=== PATIENT | female | born 1945 | race Caucasian/White ===

== ENCOUNTER 2017-01-24 17:04 | Emergency (ER) | payer MEDICARE ==
[~2017-01-24] VITALS: Ht 160 cm; Wt 66.8 kg
[~2017-01-24 17:04] MED LIST: ACYC200C PO; ALBUINHPP INH; AMLO-39 PO; ASCO250T6 PO; ATENOLOL (*) 2525 MG PO; BEN25 PO; CALC1CAP26 PO; CHOL400T41 PO; COU5 PO; DM H PO; FLONASE; HCTZ25 PO; HYDR25CA PO; LACT1CAP67 PO; LORA-302 PO; METH5TAB5 PO; MULT-885 PO; OMEP20TA86 PO; OXYC5CAP4 PO; SENN15TA35 PO; SERT25TA6 PO; WARF2.5T82 PO; WARF5TAB7 PO
[2017-01-24 17:10] VITALS: BP 129/76; PULSE 85; RESP 20; O2SAT 96
--- NOTE | 2017-01-24 17:39 | ED.REPORT ---
HPI-Chest Pain 40 and Over Date of Service Jan 24, 2017 ED Provider: Armando Cartagena MD Pt is a 71 year old female with a history of SVT, thrombophilia, HTN, and COPD who presents to the ED s/p noted to be in an irregular rhythm while at her thyroid doctors office. Her EKG was sent to a information services consultant who referred her to the ED. Pt c/o associated burning in her chest, headache, diaphoresis, lightheadedness, and a rapid heart rate of 167. Her symptoms have since resolved. Pt denies chest pain, syncope, SOB, or any other symptoms. She has had similar symptoms previously. Pt admits to smoking but reports she has cut back. Nursing Notes Stated Complaint: SVT Chief Complaint: Dysrhythmia/Cardiac Nursing Notes Reviewed: Yes Allergies: Coded Allergies: Penicillins (Verified Allergy, Severe, ITCH, 01/24/17) Sulfa (Sulfonamide Antibiotics) (Verified Allergy, Severe, ITCH, 01/24/17) amoxicillin trihydrate (Verified Allergy, Severe, ITCH, 01/24/17) carboplatin (Verified Allergy, Severe, ANAPHYLAXIS, 01/24/17) potassium clavulanate (Verified Allergy, Severe, ITCH, 01/24/17) sulfite (Verified Allergy, Severe, THROAT CLOSURE, 01/24/17) tetracycline (Verified Allergy, Severe, NAUSEA AND RASH, 01/24/17) TAPE (Verified Allergy, Unknown, BLISTERS, 01/24/17) azithromycin (Verified Allergy, Unknown, HIVES, 01/24/17) chlorpheniramine (Verified Allergy, Unknown, THROAT SWELLING, 01/24/17) phenylephrine (Verified Allergy, Unknown, THROAT SWELLING, 01/24/17) phenylpropanolamine (Verified Allergy, Unknown, THROAT SWELLING, 01/24/17) phenyltoloxamine (Verified Allergy, Unknown, THROAT SWELLING, 01/24/17) Scheduled Acyclovir-Expunged Drug, Do Not Renew! (Acyclovir-Expunged Drug, Do Not Renew!) 200 Mg Capsule 200 MG PO DAILY AmLODIPine-Expunged Drug, Do Not Renew! (AmLODIPine-Expunged Drug, Do Not Renew! ) 5 Mg Tablet 5 MG PO DAILY HOLD FOR SBP<[] OR HR<[] Ascorbic Acid-Expunged Drug, Do Not Renew! (Vitamin C-Expunged Drug, Do Not Renew!) 250 Mg Tablet 500 MG PO DAILY Atenolol-Expunged Drug, Do Not Renew! (Atenolol-Expunged Drug, Do Not Renew!) 25 Mg Tab 25 MG PO DAILY CHOLECALCIFEROL-Expunged Drug, Do Not Renew! (VITAMIN D-Expunged Drug, Do Not Renew!) 400 Unit Tablet 1,000 UNIT PO DAILY David Carb/Vitamin D3-Expunged, Do Not Renew! (CALCIUM 600/VIT D-Expunged, Do Not Renew!) 1 Each Capsule 1 EACH PO BID Dm Hb/Pe/Acetaminophen/Chlorph (Tylenol Cold Head Congest Cplt) 1 Each Tablet.seq 1 EACH PO HS Fluticasone-Expunged Drug, Do Not Renew! (Flonase-Expunged Drug, Do Not Renew!) 120 Sprays/16 Gm Aero 1 SPR NA BID IN EACH NOSTRIL Hydrochlorothiazide-Expunged, Do Not Renew! (Hydrochlorothiazide-Expunged, Do Not Renew!) 25 Mg Tablet 25 MG PO DAILY Lactobacillus Combination No.4 (Probiotic) 1 Each Capsule 1 EACH PO DAILY Lorazepam-Expunged Drug, Do Not Renew! (Lorazepam-Expunged Drug, Do Not Renew!) 0.5 Mg Tablet 0.5-1 MG PO BID For anxiety/agitation Methimazole (Methimazole) 5 Mg Tablet 2.5 MG PO DAILY Mu-Vits-Min Th/Lycopene/Lutein (Centrum Silver Tablet) 1 Each Tablet 1 EACH PO DAILY Omeprazole-Expunged Drug, Do Not Renew! (Omeprazole-Expunged Drug, Do Not Renew! ) 20 Mg Tablet.dr 20 MG PO DAILYAC Sennosides-Expunged Drug, Do Not Renew! (Senna Soft-Expunged Drug, Do Not Renew! ) 15 Mg Tablet 30 MG PO HS Sertraline HCl (Sertraline) 25 Mg Tablet 25 MG PO DAILY Warfarin Inactive Drug Do Not Use (Coumadin Inactive Drug Do Not Use) 5 Mg Tablet 5 MG PO M, W, F Warfarin Sodium (Warfarin Sodium) 5 Mg Tablet 5 MG PO MON,WEDS,FRI,SAT,SUN Warfarin Sodium (Warfarin Sodium) 2.5 Mg Tablet 2.5 MG PO E AND TH diphenhydrAMINE-Expunged Drug, Do Not Renew! (diphenhydrAMINE-Expunged Drug, Do Not Renew!) 25 Mg Cap 25 MG PO HS Scheduled PRN Albuterol-Expunged Drug, Do Not Renew! (Albuterol-Expunged Drug, Do Not Renew!) 90 Mcg Puff 1 PUFFS INH Q4-6H PRN PRN Hydroxyzine Pamoate (Vistaril) 25 Mg Capsule 25 MG PO TID PRN PRN For Itching oxyCODONE (oxyCODONE) 5 Mg Capsule 5 MG PO Q6HRS PRN PRN PRN For Pain General Time Seen by MD: 17:37 Chief Complaint Other (Irregular heart rhythm ) Hx Obtained From: Patient Arrived By: Walk-in Sudden in Onset?: Yes Quality: Burning Severity: Current: No pain currently Severity: Maximum: No pain Recent Healthcare: No recent hospitalization, Recent doctor visit Similar Sx Previous: Yes Risk Factors )( CAD Risk Stratification Hypertension Smoking Risk factors reviewed )( TAD Risk Stratification HypertensionNo Risk factors reviewed )( PE Risk Stratification No Immobilization, No , No , No Trauma Risk factors reviewed Past Medical History Past Medical History Dysphagia with dry foods aneurysm HTN Thrombophlebitis Stage 3 ovarian cancer in remission Colon cancer COPD Arthritis (back) Reports: Thyroid disease Past Surgical History Right lung lobectomy Tubaligation Colon cancer left hip repair Reports: Cataract surgery, Cholecystectomy, Hysterectomy, Tonsillectomy Smoking History Current Every Day Smoker Social History Other Social History: Good social support Ambulatory Status Independent Review of Systems Review of Systems Note: Irregular rhythm Rapid heart rate chest burning Respiratory: Denies: Shortness of breath Cardiovascular: Denies: Chest pain Skin: Reports Diaphoresis Neurologic: Reports: Headache, Lightheaded, Denies: Syncope Complete sys rev & neg: except as marked. Physical Exam Initial Vital Signs Vital Signs (First) Date Time Temp Pulse Resp B/P Pulse Ox O2 Delivery O2 Flow Rate FiO2 01/24/17 17:10 37.0 85 20 129/76 96 Room Air Initial VS: Reviewed General/Constitutional: Awake, Alert, No acute distress smells heavily of cigarette smoke Respiratory / Chest: Atraumatic, Breath sounds NL, Breath sounds = bilat, No respiratory distress Cardiovascular: Heart rate NL, Regular rhythm, Heart sounds NL Abdomen: Atraumatic, Soft, Non-tender Neck: Atraumatic, Supple, Full range of motion Back: Atraumatic, Inspection NL, Full range of motion Lower Extremity / Pelvis / MS: Atraumatic, Inspection NL, Full range of motion Skin: Atraumatic, Color NL, No rash, Warm, Dry Neurologic: Oriented X3, Speech NL, No motor deficits, No sensory deficits Head / Eyes: Atraumatic, Normocephalic, PERRL, EOMI ENT: Atraumatic, Airway patent, Mucous membranes moist Upper Extremity / MS: Atraumatic, Inspection NL, Full range of motion Interpretation & Diagnostics Lab Results Interpretation Test 01/24/17 19:12 Hold Urine Received (Received) ECG Interpretation ECG Interpretation: Ectopic atrial rhythm rate 80 Time: 18:15 Interpreted by: ED physician Re-Eval/Medical Decision Source of Hx: Old records Time of Eval: 21:20 Re-Evaluation/Progress Note: Rechecked pt. Discussed plan for discharge. Patient understands and agrees with plan. All questions addressed at this time. Consultation #1: Referral / Consult Name: Aleksandar Zepeda MD Consulted With: Cardiology Call Returned at: 18:33 Note: Discussed pt's case. Consultation #2: Referral / Consult Name: Jazz Atkinson MD Consulted With: Cardiology Call Returned at: 18:58 Note: She recommended increasing her atenolol from 25 mg to 50 mg daily with outpatient follow-up as previously arranged. Counseled Regarding: Diagnosis, Lab results Discharge & Departure Primary Impression: Atrial flutter Atrial flutter type: unspecified Qualified Code: I48.92 - Unspecified atrial flutter Disposition: Home Discharge Condition All VS Reviewed: Yes Condition: Stable Patient Instructions: Atrial Flutter (ED) Additional Instructions: The rhythm you experienced earlier today is known as: Atrial flutter. Follow- up later this week for further rhythm analysis and treatment. In the meantime, double the dose of atenolol you have been taking from 25 mg to 50 mg daily. Take an additional 25 mg tablet tonight before bed. Return to the emergency department for worsening symptoms such as: Fainting, extreme breathlessness, persistent very fast heart rate. Referrals: Vishal Boland MD (PCP) Scribe Attestation Portions of this note were transcribed by Maryam Stratton and Eleanor Ponce. IDr. Cartagena personally performed the history, physical exam and medical decision-making; I reviewed and confirmed the accuracy of the information in the transcribed note. copies to: Vishal Boland MD, Kirk H MD Jan 24, 2017 17:38 Maryam Stratton Jan 24, 2017 18:02 ELEANOR PONCE Jan 24, 2017 21:33
[2017-01-24 19:09] VITALS: BP 107/66; PULSE 68; RESP 28; O2SAT 95
[2017-01-24 21:17] VITALS: BP 119/76; PULSE 84; RESP 22; O2SAT 94
[2017-01-24 21:43] VITALS: BP 119/76; PULSE 84; RESP 22; O2SAT 94
== END 2017-01-24 21:43 | disposition home or self-care (01) ==
LOC: SED 17:04
DX: I48.92 Unspecified atrial flutter (principal); I47.1 Supraventricular tachycardia; I10 Essential (primary) hypertension; J44.9 Chronic obstructive pulmonary disease, unspecified; D68.59 Other primary thrombophilia; F17.200 Nicotine dependence, unspecified, uncomplicated; Z90.2 Acquired absence of lung [part of]; Z86.79 Personal history of other diseases of the circulatory system; Z86.39 Personal history of other endocrine, nutritional and metabolic disease; Z85.43 Personal history of malignant neoplasm of ovary; Z85.038 Personal history of other malignant neoplasm of large intestine; Z90.49 Acquired absence of other specified parts of digestive tract; Z90.710 Acquired absence of both cervix and uterus; Z79.01 Long term (current) use of anticoagulants; Z79.51 Long term (current) use of inhaled steroids; Z88.0 Allergy status to penicillin; Z88.2 Allergy status to sulfonamides; Z88.1 Allergy status to other antibiotic agents; Z88.8 Allergy status to other drugs, medicaments and biological substances